=== PATIENT | male | born 1985 | race Caucasian/White ===

== ENCOUNTER → 2019-01-18 | Outpatient (CLI) | payer BC ==
--- NOTE | 2019-01-18 13:45 | CT ---
EXAMINATION TYPE: CT ankle RT wo con DATE OF EXAM: 01/18/2019 COMPARISON: None HISTORY: right ankle fracture followup CT DLP: 527 mGycm Automated exposure control for dose reduction was used. FINDINGS: There is a well-corticated fragment of the medial malleolus distally measuring 5 mm that is nondispla miguel. There are punctate fragment distal to the fibula on axial image 41 along the anterior talofibula r ligament. Diffuse soft tissue swelling is seen of the left ankle further limiting evaluation of the ligaments and tendons. Ligaments and tendons are intrinsically limited on CT. Thickening in the lulu on of both the anterior talofibular ligament and posterior talofibular ligament suggesting injury. Ankle mortise remains aligned. Talar dome is intact. Old corticated fracture fragment of the medial s ustentaculum vinod. Osseous mineralization is within normal limits. IMPRESSION: 1. THERE ARE 2 PUNCTATE OSSEOUS FRAGMENTS DISTAL TO THE FIBULA ALONG THE THICKENED ANTERIOR TALOFIBUL AR LIGAMENT FROM SMALL AVULSION FRACTURES. THICKENING OF THE POSTERIOR TALOFIBULAR LIGAMENT IS ALSO C ONCERNING FOR INJURY IS OBTAINED FOR FURTHER EVALUATION. 2. WELL-CORTICATED FRAGMENTS OF THE MEDIAL MALLEOLUS DISTALLY AND SUSTENTACULUM VINOD RELATING TO OLD FRACTURES. 3. DIFFUSE SOFT TISSUE SWELLING OF THE RIGHT ANKLE.
== END | disposition home or self-care (01) ==
LOC: RADCTMAIN 12:46
PROVIDERS: ATTEND Orthopaedic Surgery
DX: S92.151D Displaced avulsion fracture (chip fracture) of right talus, subsequent encounter for fracture with routine healing (principal)